=== PATIENT | female | born 1965 | race Two or more races ===

== ENCOUNTER 2022-03-06 13:19 | Emergency (ER) | payer OTHER ==
[~2022-03-06] VITALS: Ht 157.5 cm; Wt 48.5 kg
== END 2022-03-06 18:46 | disposition home or self-care (01) ==
LOC: ER 13:19
DX: S92.912A Unspecified fracture of left toe(s), initial encounter for closed fracture (principal); X58.XXXA Exposure to other specified factors, initial encounter; Y93.9 Activity, unspecified; Y92.9 Unspecified place or not applicable; Y99.9 Unspecified external cause status